=== PATIENT | male | born 1985 | race Hispanic/Latino ===

== ENCOUNTER 2021-01-04 17:02 | Emergency (ER) | payer OTHER ==
[~2021-01-04] VITALS: Ht 180.3 cm; Wt 96.5 kg
[2021-01-04] MEDS ORDERED: VENTAER INH (19:45)
[2021-01-04] MEDS ORDERED: BENZ200C70 PO (19:45)
[2021-01-04 20:20] VITALS: BP 130/75
== END 2021-01-04 20:20 | disposition home or self-care (01) ==
LOC: M ED 17:02
DX: J06.9 Acute upper respiratory infection, unspecified (principal)
CPT/HCPCS: 99283; U0003

== ENCOUNTER 2022-02-06 03:45 | Emergency (ER) | payer OTHER ==
[~2022-02-06] VITALS: Ht 180.3 cm; Wt 95.5 kg
[~2022-02-06 03:45] MED LIST: BENZ200C70 PO; VENTAER INH
[2022-02-06] MEDS ORDERED: IBUPROFEN 800 MG TAB PO ONE (07:05)
[2022-02-06 07:16] VITALS: BP 124/84
== END 2022-02-06 07:29 | disposition home or self-care (01) ==
LOC: M ED 03:45
DX: S93.402A Sprain of unspecified ligament of left ankle, initial encounter (principal); W10.9XXA Fall (on) (from) unspecified stairs and steps, initial encounter; Y92.009 Unspecified place in unspecified non-institutional (private) residence as the place of occurrence of the external cause; I10 Essential (primary) hypertension

== ENCOUNTER → 2022-06-23 | Outpatient (REF) | payer OTHER ==
[2022-06-23 12:52] LABS: SEMEN APPEARANCE OPAQUE (OPAQUE); SEMEN VISCOSITY VISCOUS (LIQUID); SEMEN VOLUME 2.5 ml (2.0-5.0); SEMEN pH 8.5 (7.0-8.0)
[2022-06-23 12:53] LABS: SPERM CONCENTRATION 54.3 M/ml (>=15.0); WBC CONCENTRATION <=1 M/ml (<=1 M/ml)
== END ==
LOC: M LAB REF 12:41
PROVIDERS: ATTEND Physician Assistant
DX: N46.9 Male infertility, unspecified (principal)

== ENCOUNTER 2022-11-12 16:29 | Emergency (ER) | payer OTHER ==
[~2022-11-12] VITALS: Ht 180.3 cm; Wt 108.2 kg
[2022-11-12 17:14] LABS: BASO # 0.1 10^3/uL (0.0-0.2); BASO % 1.2 % (0.0-1.0); EOS # 0.3 10^3/uL (0.0-0.5); EOS % 4.1 % (0.0-3.0); HEMATOCRIT 44.3 % (42.0-52.0); LYMPH # 2.5 10^3/uL (1.5-5.0); LYMPH % 32.2 % (24.0-44.0); MEAN CORPUSCULAR HEMOGLOBIN 29.8 pg (27.0-33.0); MEAN CORPUSCULAR HGB CONC 33.9 g/dl (32.0-36.5); MEAN CORPUSCULAR VOLUME 87.9 fl (80.0-96.0); MONO # 0.6 10^3/uL (0.0-0.8); MONO % 8.1 % (2.0-8.0); NEUTROPHILS # 4.2 10^3/uL (1.5-8.5); NEUTROPHILS % 54.1 % (36.0-66.0); PLATELET COUNT, AUTOMATED 308 10^3/uL (150-450); RED BLOOD COUNT 5.04 10^6/uL (4.30-6.10); WHITE BLOOD COUNT 7.8 10^3/uL (4.0-10.0)
[2022-11-12 17:41] LABS: CK-MB VALUE MASS < 1.0 NG/ML (<3.6)
[2022-11-12 17:43] LABS: BLOOD UREA NITROGEN 13 MG/DL (9-23); CALCIUM LEVEL 9.1 MG/DL (8.5-10.1); CARBON DIOXIDE LEVEL 25 MMOL/L (20-31); CHLORIDE LEVEL 106 MMOL/L (98-107); CPK CREATINE PHOSPHOKINASE 126 U/L (46-171); CREATININE FOR GFR 1.05 MG/DL (0.70-1.30); GLOMERULAR FILTRATION RATE > 60.0 (>60); GLUCOSE, FASTING 77 MG/DL (60-100); MAGNESIUM LEVEL 1.8 MG/DL (1.8-2.4); MB/CK RELATIVE INDEX 0.79 (< OR =4); POTASSIUM SERUM 3.7 MMOL/L (3.5-5.1); SODIUM LEVEL 140 MMOL/L (136-145)
[2022-11-12 17:47] LABS: ERYTHROCYTE SEDIMENTATION RATE 14 mm/hr (0-15)
[2022-11-12] MEDS ORDERED: KETOROLAC 30 MG/ML 1ML VIAL IV ONE (20:00)
[2022-11-12] MEDS ORDERED: NS 1,000 ML IV ONE (20:00)
[2022-11-12] MEDS ORDERED: ISOVUE-370 76% 100ML VIAL As Ordered ONE (20:01)
[2022-11-12 20:52] LABS: CK-MB VALUE MASS < 1.0 NG/ML (<3.6)
[2022-11-12 20:57] LABS: CPK CREATINE PHOSPHOKINASE 117 U/L (46-171); MB/CK RELATIVE INDEX 0.85 (< OR =4); THYROID STIMULATING HORMONE 2.023 uIU/ML (0.55-4.78)
[2022-11-12 21:20] VITALS: BP 145/88; TEMP 98.3; O2SAT 97
== END 2022-11-12 21:47 | disposition home or self-care (01) ==
LOC: M ED 18:05
DX: R07.89 Other chest pain (principal); R51.9 Headache, unspecified; Q44.6 Cystic disease of liver; K76.0 Fatty (change of) liver, not elsewhere classified; I10 Essential (primary) hypertension; J45.909 Unspecified asthma, uncomplicated; F41.9 Anxiety disorder, unspecified
CPT/HCPCS: 71275; 80048; 82550; 82553; 83735; 84443; 84484; 85025; 85652; 87486; 87581; 87633; 87798; 93005; 96361; 96374; 99284; J1885; Q9967

== ENCOUNTER → 2023-02-08 | Outpatient (CLI) | payer OTHER | LOC: M RAD 08:31 | PROVIDERS: ATTEND Physician Assistant | DX: I10 Essential (primary) hypertension (principal) ==

== ENCOUNTER 2023-10-12 15:13 | Emergency (ER) | payer OTHER ==
[~2023-10-12] VITALS: Ht 180.3 cm; Wt 103.1 kg
[2023-10-12] MEDS ORDERED: BUPR-597 (15:23)
[2023-10-12] MEDS ORDERED: D 50CAP2 (15:23)
[2023-10-12] MEDS ORDERED: CLON0.2T (15:23)
[2023-10-12 16:14] LABS: BASO # 0.1 10^3/uL (0.0-0.2); EOS # 0.3 10^3/uL (0.0-0.5); EOS % 3.7 % (0.0-3.0); HEMATOCRIT 42.7 % (42.0-52.0); HEMOGLOBIN 14.5 g/dl (13.5-17.5); LYMPH % 24.4 % (24.0-44.0); MEAN CORPUSCULAR HEMOGLOBIN 30.1 pg (27.0-33.0); MEAN CORPUSCULAR VOLUME 88.8 fl (80.0-96.0); MONO # 0.6 10^3/uL (0.0-0.8); MONO % 7.9 % (2.0-8.0); NEUTROPHILS # 5.1 10^3/uL (1.5-8.5); NEUTROPHILS % 62.9 % (36.0-66.0); PLATELET COUNT, AUTOMATED 289 10^3/uL (150-450); RED BLOOD COUNT 4.81 10^6/uL (4.30-6.10); WHITE BLOOD COUNT 8.1 10^3/uL (4.0-10.0)
[2023-10-12 16:38] LABS: LIPASE 39 U/L (12-53)
[2023-10-12 16:41] LABS: ALBUMIN 3.4 G/DL (3.2-5.2); ALKALINE PHOSPHATASE 105 U/L (46-116); ALT/SGPT 35 U/L (7.0-40); AST/SGOT 14 U/L (<34); BILIRUBIN,DIRECT 0.1 MG/DL (<0.4); BILIRUBIN,TOTAL 0.4 MG/DL (0.3-1.2); BLOOD UREA NITROGEN 17 MG/DL (9-23); CARBON DIOXIDE LEVEL 30 MMOL/L (20-31); CHLORIDE LEVEL 108 MMOL/L (98-107); CREATININE FOR GFR 1.12 MG/DL (0.70-1.30); GLOMERULAR FILTRATION RATE > 60.0 (>60); GLUCOSE, FASTING 111 MG/DL (60-100); POTASSIUM SERUM 3.7 MMOL/L (3.5-5.1); SODIUM LEVEL 141 MMOL/L (136-145); TOTAL PROTEIN 6.3 G/DL (5.7-8.2)
[2023-10-12] MEDS ORDERED: ISOVUE-370 76% 100ML VIAL As Ordered ONE (17:05)
[2023-10-12] MEDS: ACETAMINOPHEN *IV* 1,000 MG in IV 1 EA IV ONE (17:19)
[2023-10-12] MEDS ORDERED: ANUS2.5C2 TOP (18:49)
[2023-10-12] MEDS ORDERED: COLA100C5 PO (18:49)
[2023-10-12 19:07] VITALS: BP 131/78; TEMP 97.9; O2SAT 97
== END 2023-10-12 19:09 | disposition home or self-care (01) ==
LOC: M ED 15:13
DX: K64.9 Unspecified hemorrhoids (principal); K76.9 Liver disease, unspecified; I10 Essential (primary) hypertension; Z79.52 Long term (current) use of systemic steroids; Z79.899 Other long term (current) drug therapy
CPT/HCPCS: 74177; 80048; 80076; 83690; 85025; 86850; 86900; 86901; 96374; 99284; J0131; Q9967

== ENCOUNTER 2024-01-10 16:25 | Emergency (ER) | payer OTHER ==
[~2024-01-10] VITALS: Ht 180.3 cm; Wt 104.4 kg
[~2024-01-10 16:25] MED LIST changes: +ANUS2.5C2 TOP; +BUPR-597; +CLON0.2T; +COLA100C5 PO; +D 50CAP2
[2024-01-10] MEDS ORDERED: AMOX500C (17:55)
[2024-01-10] MEDS ORDERED: AZIT-12 PO (20:37)
[2024-01-10] MEDS: AZITHROMYCIN 250MG TABLET PO ONE (20:38)
[2024-01-10 20:46] VITALS: BP 154/95; TEMP 97; O2SAT 98
== END 2024-01-10 20:46 | disposition home or self-care (01) ==
LOC: M ED 16:25
DX: J02.0 Streptococcal pharyngitis (principal); Z79.2 Long term (current) use of antibiotics; Z79.899 Other long term (current) drug therapy

== ENCOUNTER 2024-02-10 15:46 | Emergency (ER) | payer OTHER ==
[~2024-02-10] VITALS: Ht 180.3 cm; Wt 106.1 kg
[~2024-02-10 15:46] MED LIST changes: +AMOX500C; +AZIT-12 PO
[2024-02-10] MEDS: KETOROLAC 30 MG/ML 1ML VIAL IM ONE (19:31)
[2024-02-10] MEDS: LIDOCAINE 5% (LIDODERM) PATCH TD ONE (19:32)
[2024-02-10] MEDS: ACETAMINOPHEN 500 MG TAB PO ONE (19:32)
[2024-02-10] MEDS ORDERED: CYCL5TAB PO (19:56)
[2024-02-10 20:05] VITALS: BP 144/97; TEMP 96.4; O2SAT 97
== END 2024-02-10 20:27 | disposition home or self-care (01) ==
LOC: M ED 15:46
DX: S39.012A Strain of muscle, fascia and tendon of lower back, initial encounter (principal); I10 Essential (primary) hypertension; Y92.9 Unspecified place or not applicable; Y93.B9 Activity, other involving muscle strengthening exercises; Y99.9 Unspecified external cause status; Z79.2 Long term (current) use of antibiotics; Z79.899 Other long term (current) drug therapy
CPT/HCPCS: 93005; 96372; 99284; J1885

== ENCOUNTER 2025-03-05 10:15 | Emergency (ER) | payer OTHER ==
[~2025-03-05] VITALS: Ht 180.3 cm; Wt 100.0 kg
[~2025-03-05 10:15] MED LIST changes: -BUPR-597; +BUPR-766; +CYCL5TAB4 PO
[2025-03-05 11:38] LABS: BASO # 0.1 10^3/uL (0.0-0.2); BASO % 1.3 % (0.0-1.0); EOS # 0.2 10^3/uL (0.0-0.5); EOS % 2.8 % (0.0-3.0); LYMPH # 2.5 10^3/uL (1.5-5.0); LYMPH % 33.2 % (24.0-44.0); MONO # 0.7 10^3/uL (0.0-0.8); MONO % 9.3 % (2.0-8.0); NEUTROPHILS # 4.0 10^3/uL (1.5-8.5); NEUTROPHILS % 53.1 % (36.0-66.0); PLATELET COUNT, AUTOMATED 322 10^3/uL (150-450)
[2025-03-05] MEDS ORDERED: ISOVUE-370 76% 100 ML VIAL As Ordered ONE (11:57)
[2025-03-05] MEDS: ONDANSETRON 4MG/2ML VIAL IV ONE (12:10)
[2025-03-05] MEDS: KETOROLAC 30 MG/ML 1 ML VIAL IV ONE (12:11)
[2025-03-05 12:34] LABS: ALT/SGPT 26.0 U/L (7.0-40); AST/SGOT 20.0 U/L (<34); CALCIUM LEVEL 9.0 MG/DL (8.5-10.1); CARBON DIOXIDE LEVEL 28.0 MMOL/L (20-31); CHLORIDE LEVEL 107.0 MMOL/L (98-107); CREATININE FOR GFR 1.1 MG/DL (0.70-1.30); GLOMERULAR FILTRATION RATE 87.0 (>60); POTASSIUM SERUM 4.4 MMOL/L (3.5-5.1); SODIUM LEVEL 143.0 MMOL/L (136-145)
[2025-03-05 13:15] VITALS: BP 135/80; TEMP 97.2; O2SAT 99
== END 2025-03-05 13:17 | disposition home or self-care (01) ==
LOC: M ED 10:15
DX: R10.9 Unspecified abdominal pain (principal); I10 Essential (primary) hypertension; K76.89 Other specified diseases of liver; K76.0 Fatty (change of) liver, not elsewhere classified; D18.01 Hemangioma of skin and subcutaneous tissue; Z79.2 Long term (current) use of antibiotics; Z79.899 Other long term (current) drug therapy; Z79.1 Long term (current) use of non-steroidal anti-inflammatories (NSAID)
CPT/HCPCS: 74177; 80047; 80048; 80076; 83690; 85025; 93005; 96374; 96375; 99284; J1885; J2405; Q9967